=== PATIENT | female | born 1995 | race Caucasian/White ===

== ENCOUNTER 2019-04-05 09:05 | Inpatient (IN) | payer OTHER ==
[2019-04-05] MEDS ORDERED: BUTORPHANOL TARTRATE 1 MG/ML VIAL IVPB ONE (10:20)
[2019-04-05] MEDS ORDERED: PROMETHAZINE HCL 25 MG/1 ML VIAL IVPUSH ONE (10:20)
--- NOTE | 2019-04-05 10:23 | HP ---
Past Medical History - Primary Care Physician PCP:: Amarilis Gudino - Admission Chief Complaint: Labor History Source: Patient Limitations to Obtaining History: No Limitations - Past Medical History ...: 2 ...Para: 0 ...Induced : 1 ...LMP: 07/07/18 ... Weeks Gestation by Dates: 38.5 ...EDC by Dates: 04/13/19 ...EDC by Sono: 04/12/19 Home Medications - Allergies Allergies/Adverse Reactions: Allergies Allergy/AdvReac Type Severity Reaction Status Date / Time amphetamine [From Adderall] Allergy Severe Rash Verified 04/05/19 09:50 dextroamphetamine Allergy Severe Rash Verified 04/05/19 09:50 [From Adderall] - Home Medications Home Medications: Ambulatory Orders Prenat 115/Iron Fum/Folic/Dss [ 19 Tablet] 1 tab PO DAILY 04/05/19 Physical Exam - Maternity Vital Signs: Vital Signs Temperature 98.2 F 04/05/19 09:56 Pulse Rate 85 04/05/19 09:56 Respiratory Rate 20 04/05/19 09:56 Blood Pressure 110/75 04/05/19 09:56 O2 Sat by Pulse Oximetry (%) Constitutional: Yes: Well Nourished, No Distress Neck: Yes: WNL Cardiovascular: Yes: WNL Lungs: Clear to auscultation Breast(s): Yes: WNL - Abdominal Exam/OB Number of Fetuses: Single Presentation: Vertex Contractions: Yes Regularity: Regular Category: I - Vaginal Exam/OB Dilatation (cm): 3 Effacement (%): 100 Amniotic Membrane Status: Bulging Presentation: Vertex/Position - Physical Exam Musculoskeletal: Yes: WNL Extremities: Yes: WNL Edema: No Integumentary: Yes: WNL Psychiatric: Yes: WNL, Alert, Oriented Hemorrhage Risk Assessment - Risk Factors Risk Score: 0 Risk Level: Low Risk Problem List - Problems (1) 39 weeks gestation of Code(s): Z3A.39 - 39 WEEKS GESTATION OF (2) Labor established Code(s): RQW2101 - Assessment/Plan IUP at 38.6 weeks Active labor Cat 1 GBS positive Plan admit amp
[2019-04-05] MEDS ORDERED: AMPICILLIN SODIUM 2 GM VIAL ONE (10:35)
[2019-04-05] MEDS ORDERED: SODIUM CHLORIDE 100 ML IVPB ONE ×3 (10:35→17:22)
[2019-04-05] MEDS: ELECTROLYTE-148 SOLN 1,000 ML IV SCH ×3 (10:45→18:56)
[2019-04-05 10:59] VITALS: BMI 26.5
[2019-04-05 11:01] LABS: BLOOD UREA NITROGEN 4.1 mg/dL (7-18); CALCIUM 8.9 mg/dL (8.5-10.1); CREATININE 0.5 mg/dL (0.55-1.3)
[2019-04-05 11:06] LABS: INR 0.94 (0.83-1.09); PROTHROMBIN TIME (PATIENT) 11.1 SEC (9.7-13.0)
[2019-04-05 11:07] LABS: BASO % 0.3 % (0-2.0); HEMATOCRIT 36.5 % (32.4-45.2); HEMOGLOBIN 12.4 GM/dL (10.7-15.3); LYMPH % 8.5 % (8-40); MCH 28.8 pg (25.7-33.7); MCHC 33.9 g/dl (32.0-36.0); MEAN CELL VOLUME 84.9 fl (80-96); MEAN PLT VOLUME 8.9 fl (7.5-11.1); MONO % 4.8 % (3.8-10.2); NEUT % 86.4 % (42.8-82.8); RDW 16.3 % (11.6-15.6); WHITE BLOOD COUNT 9.1 K/mm3 (4.0-10.0)
[2019-04-05] MEDS ORDERED: PROMETHAZINE HCL 25 MG/1 ML VIAL ONE ×2 (11:07→14:55)
[2019-04-05] MEDS ORDERED: BUTORPHANOL TARTRATE 1 MG/ML VIAL ONE ×4 (11:07→14:55)
[2019-04-05 11:08] LABS: ACTIVATED PTT 27.4 SECONDS (25.2-36.5)
[2019-04-05 11:16] LABS: PLATELET COUNT 222 K/MM3 (134-434)
[2019-04-05 11:58] LABS: COCAINE, UR NEGATIVE ng/ml (CUTOFF=300); METHADONE, UR NEGATIVE ng/ml (CUTOFF=300); OPIATES, URI NEGATIVE ng/ml (CUTOFF=300); PHENCYCLIDINE,URINE NEGATIVE ng/ml (CUTOFF=25); URINE AMPHETAMINES NEGATIVE ng/ml (CUTOFF=500); URINE BARBITURATES NEGATIVE ng/ml (CUTOFF=200); URINE BENZODIAZEPINES NEGATIVE ng/ml (CUTOFF=200)
--- NOTE | 2019-04-05 13:53 | PN ---
Ante-Partal Exam - Subjective Subjective: Pt doing well sp stadol Vital Signs: Vital Signs Temperature 98.3 F 04/05/19 10:52 Pulse Rate 64 04/05/19 11:00 Respiratory Rate 20 04/05/19 11:00 Blood Pressure 114/68 04/05/19 11:00 O2 Sat by Pulse Oximetry (%) Bleeding: No Headache: No Visual changes: No Right upper quadrant pain: No - Contractions Contractions: Yes Regularity: Irregular Monitor Mode: External - Exam during Labor Heart Rate: 145 Variability: Moderate Heart Rate Location: [facility] Category: I Monitor Accelerations: Present Monitor Decelerations: None Exam: Vaginal Dilatation (cm): 3 Effacement (%): 90 Amniotic Membrane Status: Intact Presentation: Vertex Station: 0 - Intrapartum Hemorrhage Risk Risk Score: 0 Risk Level: Low Risk - Assessment/Plan Assessment/Plan: Prodromal labor iup at 39 week GBS positive Cat 1 Plan stadol prn
[2019-04-05] MEDS ORDERED: AMPICILLIN SODIUM 1 GM VIAL ONE ×3 (13:57→21:56)
[2019-04-05] MEDS ORDERED: BUTORPHANOL TARTRATE 2 MG/ML VIAL IVPUSH PRN (13:58)
[2019-04-05] MEDS: AMPICILLIN - 1 GM in SODIUM CHLORIDE 100 ML IVPB SCH ×3 (14:15→22:15)
[2019-04-05] MEDS ORDERED: PROMETHAZINE HCL 25 MG/1 ML VIAL IVPB ONE (15:30)
[2019-04-05] MEDS ORDERED: FENTANYL/BUPIVACAINE/NS/PF - PCEA - 50 ML DISP.SYRIN EP ONE ×2 (18:28→23:17)
[2019-04-05] MEDS ORDERED: NALOXONE HCL 0.4 MG/ML VIAL IVPUSH PRN (18:50)
[2019-04-05] MEDS ORDERED: FENTANYL/BUPIVACAINE/NS/PF - PCEA - 50 ML DISP.SYRIN EP SCH (19:00)
[2019-04-05] MEDS ORDERED: LIDOCAINE HCL 1% PRESERVATIVE FREE - 30ML VIAL ONE (19:38)
--- NOTE | 2019-04-05 20:20 | PN ---
Ante-Partal Exam - Subjective Vital Signs: Vital Signs Temperature 99.2 F 04/05/19 18:00 Pulse Rate 67 04/05/19 19:30 Respiratory Rate 18 04/05/19 19:30 Blood Pressure 122/75 04/05/19 19:30 O2 Sat by Pulse Oximetry (%) 100 04/05/19 19:30 Headache: No Visual changes: No Right upper quadrant pain: No - Contractions Contractions: Yes Regularity: Regular Intensity: Moderate Monitor Mode: External - Exam during Labor Heart Rate: 140 Variability: Moderate Category: I Monitor Accelerations: Present Monitor Decelerations: None Exam: Vaginal Dilatation (cm): 4 Effacement (%): 100 Amniotic Membrane Status: Bulging Presentation: Vertex Station: -1 - Assessment/Plan Assessment/Plan: sp epidural Pt doing well Plan Continue present management
--- NOTE | 2019-04-05 21:43 | PN ---
Ante-Partal Exam - Subjective Vital Signs: Vital Signs Temperature 99.2 F 04/05/19 18:00 Pulse Rate 66 04/05/19 20:00 Respiratory Rate 18 04/05/19 20:00 Blood Pressure 120/72 04/05/19 20:00 O2 Sat by Pulse Oximetry (%) 100 04/05/19 20:00 Bleeding: No Headache: No Visual changes: No Right upper quadrant pain: No - Contractions Contractions: Yes Regularity: Regular Monitor Mode: External - Exam during Labor Heart Rate: 155 Variability: Moderate Category: I Monitor Accelerations: Present Monitor Decelerations: None Exam: Vaginal Dilatation (cm): 5 Effacement (%): 100 Amniotic Membrane Status: Ruptured Amniotic Fluid: Clear Presentation: Vertex - Intrapartum Hemorrhage Risk Risk Score: 0 Risk Level: Low Risk - Assessment/Plan Assessment/Plan: AROM clear Cat 1 Plan continue present management
[2019-04-06] MEDS ORDERED: AMPICILLIN SODIUM 1 GM VIAL ONE ×3 (01:53→10:03)
[2019-04-06] MEDS: AMPICILLIN - 1 GM in SODIUM CHLORIDE 100 ML IVPB SCH ×3 (02:15→10:00)
[2019-04-06] MEDS ORDERED: FENTANYL/BUPIVACAINE/NS/PF - PCEA - 50 ML DISP.SYRIN EP ONE ×2 (02:52→06:40)
[2019-04-06] MEDS ORDERED: LIDO 2%/EPI 1:200000 PRESRVFRE (20 ML SDVIAL) ONE ×2 (05:09→08:46)
--- NOTE | 2019-04-06 05:17 | PN ---
Ante-Partal Exam - Subjective Subjective: Pt with c/o pushing and pressure Vital Signs: Vital Signs Temperature 97.8 F 04/06/19 03:00 Pulse Rate 82 04/06/19 04:30 Respiratory Rate 20 04/06/19 04:30 Blood Pressure 140/86 04/06/19 04:30 O2 Sat by Pulse Oximetry (%) 100 04/06/19 04:30 Headache: No Visual changes: No Right upper quadrant pain: No - Contractions Contractions: Yes Regularity: Regular Intensity: Moderate Monitor Mode: External - Exam during Labor Heart Rate: 155 Variability: Moderate Heart Rate Location: [facility] Category: I Monitor Decelerations: None Exam: Vaginal Dilatation (cm): 7-8 Effacement (%): 70 Amniotic Membrane Status: Ruptured Amniotic Fluid: Clear Presentation: Vertex Station: 0 - Intrapartum Hemorrhage Risk Risk Score: 0 Risk Level: Low Risk - Assessment/Plan Assessment/Plan: Prolonged labor pattern Cat 1 Plan Epidural top off
[2019-04-06] MEDS ORDERED: OXYTOCIN 20 UNITS in 0.9% NS 20 UNIT/1,000 ML INFUS.BAG IV ONE (09:02)
[2019-04-06] MEDS ORDERED: SIMETHICONE 80 MG TAB.CHEW (FP) PO PRN (09:37)
[2019-04-06] MEDS ORDERED: SENNOSIDES/DOCUSATE COMBO (SENNA PLUS) TABLET (UD) PO PRN (09:37)
[2019-04-06] MEDS ORDERED: IBUPROFEN 800 MG/8 ML IJ IVPB PRN (09:37)
[2019-04-06] MEDS ORDERED: oxyCODONE HCL 5 MG TABLET PO PRN (09:37)
[2019-04-06] MEDS ORDERED: METHYLERGONOVINE MALEATE 0.2 MG/1 ML AMP IM PRN (09:37)
--- NOTE | 2019-04-06 09:37 | PN ---
Ante-Partal Exam - Subjective Vital Signs: Vital Signs Temperature 99.0 F 04/06/19 07:00 Pulse Rate 70 04/06/19 08:30 Respiratory Rate 20 04/06/19 08:30 Blood Pressure 138/89 04/06/19 08:30 O2 Sat by Pulse Oximetry (%) 100 04/06/19 08:30 Bleeding: No Headache: No Visual changes: No Right upper quadrant pain: No - Contractions Contractions: Yes Regularity: Regular Intensity: Moderate Monitor Mode: External - Exam during Labor Heart Rate: 160 Variability: Moderate Category: I Monitor Accelerations: Present Monitor Decelerations: Early Exam: Vaginal Dilatation (cm): FD Amniotic Membrane Status: Ruptured Amniotic Fluid: Clear Presentation: Vertex - Intrapartum Hemorrhage Risk Risk Score: 0 Risk Level: Low Risk - Assessment/Plan Assessment/Plan: 2nd stage of labor Active labor Plan will encourage to push and delivery vaginally
[2019-04-06] MEDS ORDERED: OXYTOCIN 20 UNITS in 0.9% NS 20 UNIT/1,000 ML INFUS.BAG IV SCH (09:45)
--- NOTE | 2019-04-06 09:46 | PROC ---
Obstetrical Vaccum Device - Doc. Following Use of Vaccum Device Indications for use: Bradycardia Risks and Benefits Explained: Yes Consent on Chart: Yes Station: 2 Molding: No Position: OA Caput: No Proper placement of cup confirmed: No Number of pulls: 1 Number of pop-offs: 0 Reduction of pressure between contractions: Yes Appearance of head on delivery: Normal Airport Representative present during vacuum extraction: No Airport Representative & nursery staff notified of vacuum extraction: Yes
--- NOTE | 2019-04-06 11:12 | PN ---
Delivery - Delivery Vaginal Delivery: No Problems, Vacuum Assist Type of Anesthesia: Epidural Episiotomy/Laceration: Right Mediolateral Delivery, Single - Stages of Labor Placenta: Yes: Spontaneous, Expressed - Condition of Gender: Male Position: OA - Feeding Plan Initial Plan: Elected not to breastfeed exclusively throughout hospitalization
[2019-04-06] MEDS: PRENATAL VITAMINS W/ FOLIC ACID TABLET (FP) PO SCH (14:27)
[2019-04-06] MEDS: IBUPROFEN 600 MG TABLET (FP) PO PRN (16:38)
[2019-04-07] MEDS: IBUPROFEN 600 MG TABLET (FP) PO PRN (00:02)
[2019-04-07 07:05] LABS: BASO % 0.5 % (0-2.0); HEMATOCRIT 28.4 % (32.4-45.2); HEMOGLOBIN 9.7 GM/dL (10.7-15.3); LYMPH % 18.6 % (8-40); MCH 29.2 pg (25.7-33.7); MCHC 34.1 g/dl (32.0-36.0); MEAN CELL VOLUME 85.4 fl (80-96); MEAN PLT VOLUME 8.6 fl (7.5-11.1); MONO % 7.3 % (3.8-10.2); NEUT % 72.6 % (42.8-82.8); PLATELET COUNT 187 K/MM3 (134-434); RBC 3.32 M/mm3 (3.60-5.2); RDW 16.5 % (11.6-15.6); WHITE BLOOD COUNT 10.7 K/mm3 (4.0-10.0)
--- NOTE | 2019-04-07 07:28 | PN ---
Post Note - Post Date of Delivery: 04/06/19 Post Day: 1 Vital Signs: Vital Signs - 24 hr 04/06/19 04/06/19 04/06/19 07:30 07:45 08:00 Temperature Pulse Rate 80 85 73 Respiratory 20 20 20 Rate Blood Pressure 129/83 128/84 134/87 O2 Sat by Pulse 100 100 100 Oximetry (%) 04/06/19 04/06/19 04/06/19 08:15 08:30 08:45 Temperature Pulse Rate 91 H 70 77 Respiratory 20 20 20 Rate Blood Pressure 130/86 138/89 134/93 O2 Sat by Pulse 100 100 100 Oximetry (%) 04/06/19 04/06/19 04/06/19 09:00 09:15 09:30 Temperature Pulse Rate 68 77 72 Respiratory 20 20 20 Rate Blood Pressure 145/93 154/89 134/68 O2 Sat by Pulse 100 99 Oximetry (%) 04/06/19 04/06/19 04/06/19 09:45 10:00 10:15 Temperature Pulse Rate 75 79 71 Respiratory 24 H 20 20 Rate Blood Pressure 126/85 138/77 O2 Sat by Pulse 97 94 L Oximetry (%) 04/06/19 04/06/19 04/06/19 10:30 10:45 11:00 Temperature Pulse Rate 75 74 71 Respiratory 20 20 20 Rate Blood Pressure 137/79 127/70 O2 Sat by Pulse 100 Oximetry (%) 04/06/19 04/06/19 04/06/19 11:15 11:30 11:45 Temperature Pulse Rate 68 63 Respiratory 18 18 Rate Blood Pressure 126/76 132/73 O2 Sat by Pulse 97 100 100 Oximetry (%) 04/06/19 04/06/19 04/06/19 12:00 12:45 17:58 Temperature 98.6 F 98 F Pulse Rate 66 100 H Respiratory 20 20 Rate Blood Pressure 133/74 114/72 O2 Sat by Pulse 100 Oximetry (%) 04/06/19 04/07/19 21:31 06:00 Temperature 98.0 F 97.7 F Pulse Rate 106 H 83 Respiratory 20 18 Rate Blood Pressure 104/75 114/75 O2 Sat by Pulse Oximetry (%) Labs: Laboratory Results - last 24 hr 04/06/19 04/06/19 10:46 10:47 Cord Blood pH 7.32 Cancelled Cord Blood PCO2 41.6 Cancelled Cord Blood PO2 < 49 H Cancelled Cord Blood HCO3 20.9 Cancelled Cord Base Excess -4.4 L Cancelled - Subjective Subjective: No Complaints, Other (Pt standing with baby) - Objective Afebrile: Yes Breast: Not engorged Abdomen: Soft, Non-tender Uterus: Fundus firm Vagina: Scant lochia Extremities: Non-tender - Assessment/Plan (1) 39 weeks gestation of Assessment: S/P Normal Plan: Routine Care (2) Labor established Assessment: S/P Normal Plan: Routine Care
[2019-04-07] MEDS ORDERED: BISACODYL 10 MG SUPP.RECT RC PRN (09:37)
[2019-04-07] MEDS ORDERED: DIPHTH,PERTUSS(ACELL),TET 0.5 ML DISP.SYRIN IM ONE (10:00)
[2019-04-07] MEDS ORDERED: ACETAMINOPHEN 325 MG TABLET (FP) ONE (10:30)
[2019-04-07] MEDS: PRENATAL VITAMINS W/ FOLIC ACID TABLET (FP) PO SCH (10:34)
[2019-04-07] MEDS: FERROUS SO4 325 MG TABLET (FP) PO SCH ×2 (10:34→21:20)
[2019-04-07] MEDS ORDERED: ACETAMINOPHEN 325 MG TABLET (FP) PO PRN (11:04)
[2019-04-07] MEDS: IBUPROFEN 200 MG TABLET PO PRN (20:11)
[2019-04-08] MEDS: IBUPROFEN 200 MG TABLET PO PRN ×2 (01:32→05:47)
[2019-04-08 08:47] VITALS: BP 120/73; PULSE 77; TEMP 97.8
[2019-04-08] MEDS: PRENATAL VITAMINS W/ FOLIC ACID TABLET (FP) PO SCH (09:53)
[2019-04-08] MEDS: FERROUS SO4 325 MG TABLET (FP) PO SCH (09:53)
== END 2019-04-08 11:00 | disposition home or self-care (01) | DRG 560 ==
LOC: JDEL 09:05 → JLDR 10:15 → J3W 04-06 12:50
PROVIDERS: ADMIT Obstetrics & Gynecology; ATTEND Obstetrics & Gynecology
PROC: 10D07Z6 Extraction of Products of Conception, Vacuum, Via Natural or Artificial Opening (ICD-10-PCS; principal; 2019-04-06)
PROC: 0W8NXZZ Division of Female Perineum, External Approach (ICD-10-PCS; 2019-04-06)
DX: O76 Abnormality in fetal heart rate and rhythm complicating labor and delivery (principal); Z3A.39 39 weeks gestation of pregnancy; Z22.330 Carrier of Group B streptococcus; Z37.0 Single live birth
CPT/HCPCS: 36415; 36600; 59409; 80048; 80307; 82803; 85025; 85610; 85730; 86593; 86850; 86900; 86901; 90715